=== PATIENT | female | born 1955 | race Caucasian/White ===

== ENCOUNTER → 2024-10-22 | Outpatient (CLI) | payer MEDICARE, BC, SELFPAY ==
--- NOTE | 2024-10-22 13:45 | XR_ITS ---
Examination: Screening digital mammography, bilateral Computer aided detection 3-D breast Tomosynthesis, bilateral Date and time of exam: 10/22/2024, 1:17 PM Comparisons: September 2019 through May 2023 Indications: Screening Technique: Nonmagnified MLO, CC views of the breasts to been obtained, reconstructed from 3-D Tomosynthesis images. R2 computer aided detection program utilized for evaluation of suspicious masses and/or abnormal calcifications. 3-D Tomosynthesis images obtained. Technologist: Findings: The breasts are heterogeneously dense, which may obscure small masses. No evidence of abnormal masses or suspicious calcifications. Impression: BI-RADS category 1: Negative findings (within normal) Recommend 1 year follow-up mammogram
--- NOTE | 2024-10-22 14:20 | XR_ITS ---
Examination: Bone densitometry Date and time of exam:October 22, T2 thousand 25, 1401 hrs. Indications: Menopause age 53 D3 years, personal history Technique: Lumbar spine and hip total bone mineralization values of an calculated. Peak reference and age match control results have been displayed. Findings: Lumbar spine total bone mineralization isosteopenia. gm/cm2. This is 1.3. standard deviations below. peak reference. This is 0.9. standard deviations above age-matched controls. Hip total bone mineralization is 0.668 gm/cm2 This is 2.2 standard deviations below peak reference. This is 0.7 standard deviations below age-matched controls Impression: There is osteopenia based on lumbar spine measurements. There is osteoporosis based on hip measurements Lumbar mineralization is increased 2.2% compared with May 20, 2022. Hip mineralization is decreased 0.1% compared with 06/20/2022.
== END | disposition home or self-care (01) ==
LOC: CDIM 12:50
PROVIDERS: Referring Provider Nurse Practitioner; Visit Provider Nurse Practitioner
DX: Z12.31 Encounter for screening mammogram for malignant neoplasm of breast (principal); R92.313 Mammographic fatty tissue density, bilateral breasts; M85.88 Other specified disorders of bone density and structure, other site; M81.0 Age-related osteoporosis without current pathological fracture
CPT/HCPCS: 77063; 77067; 77080